=== PATIENT | female | born 1995 | race Hispanic/Latino ===

== ENCOUNTER → 2018-09-13 16:24 | Outpatient (CLI) | payer MEDICAID, SELFPAY ==
[2018-09-13 18:53] LABS: Chlamydia Trachomatis by PCR Negative (Negative); Neisserai gonorrhoeae by PCR Negative (Negative); Probe Check PASS; Sample Adequacy Control PASS; Specimen Processing Control PASS
[2018-09-17 11:07] LABS: HPV Reflexed? NOT INDICATED
== END ==
PROVIDERS: Visit Provider Obstetrics & Gynecology
DX: Z12.4 Encounter for screening for malignant neoplasm of cervix (principal); Z11.3 Encounter for screening for infections with a predominantly sexual mode of transmission; Z32.01 Encounter for pregnancy test, result positive
CPT/HCPCS: 87491; 87591; 88175; G0145

== ENCOUNTER → 2018-09-22 15:31 | Outpatient (CLI) | payer MEDICAID, SELFPAY ==
[2018-09-22 17:58] LABS: Color, Urine Yellow (Yellow); Glucose, Dipstick Normal (Normal); Ketone-Dipstick 50 mg/dl (Negative); Leukocyte Esterase-Dipstick 100 /ul (Negative); Nitrite-Dipstick Negative (Negative); Occult Blood-Urine Negative /ul (Negative); Protein-Dipstick 30 mg/dl (Negative); Specific Gravity, Urine 1.015 (1.002-1.030); Urine Bilirubin Dipstick Negative (Negative); Urine Clarity Sl. Cloudy (Clear); Urine Urobilinogen 4 mg/dl (Normal)
[2018-09-22 17:59] LABS: Absolute Lymphocyte Count 1.83 X10^3/ul (0.83-4.51); Absolute Neutrophil Count 5.1 X10^3/uL (2.0-7.7); Basophil# 0.01 X10^3/uL; Basophil% 0.1 % (0-1); Eosinophil# 0.05 X10^3/uL; Eosinophils% 0.7 % (0-5); Hematocrit 31.6 % (37-47); Hemoglobin 9.9 g/dl (12.0-15.0); Lymphocyte # 1.83 X10^3/ul (4.0); Lymphocyte % 24.6 % (19-41); Mean Corp Hgb Conc 31.3 g/gl (32-36); Mean Corpuscular Hgb 25.8 pg (27.0-32.0); Mean Corpuscular Volume 82.5 fL (81-99); Mean Platelet Vol. 10.2 fl (6.2-12.0); Monocyte# 0.41 X10^3/uL; Monocyte% 5.5 % (0-10); Neutrophil # 5.13 X10^3/uL (2.7-7.7); Neutrophil % 68.8 % (47-70); Platelet Count 262 K/mm3 (150-450); RBC Distribution Width CV 14.3 % (11.6-14.6); Red Blood Count 3.83 M/mm3 (4.2-5.4); White Blood Count 7.5 K/mm3 (4.4-11.0)
[2018-09-22 18:06] LABS: Amphetamine Urine VISTA NEGATIVE (<1000 ng/mL); Barbiturate Urine VISTA NEGATIVE (< 200 ng/mL); Benzodiazepine Urine VISTA NEGATIVE (< 200 ng/mL); Cocaine Urine VISTA NEGATIVE (< 300 ng/mL); Ecstacy Urine VISTA NEGATIVE (< 500 ng/mL); Methadone Urine VISTA NEGATIVE (< 300 ng/mL); PCP Urine VISTA NEGATIVE (< 25 ng/mL); THC Urine VISTA POSITIVE (< 50 ng/mL); Vista UDS pH Range 6
[2018-09-22 18:11] LABS: Thyroid Stim Hormone (TSH) 0.31 uIU/mL (0.358-3.74)
[2018-09-22 18:17] LABS: POSITIVE COUNT NO; POSITIVE DIFFERENTIAL NO; POSITIVE MORPHOLOGY NO
[2018-09-22 18:40] LABS: COTININE Drug Screen Negative (<200 ng/mL)
[2018-09-22 19:00] LABS: HIV - WCH Non-Reactive (Nonreactive)
[2018-09-23 01:35] LABS: Prenatal RPR NONREACTIVE (NONREACTIVE)
[2018-09-23 15:35] LABS: Free T3 2.7 pg/mL (2.18-3.98); T4 Free Direct 1.07 ng/dL (0.76-1.46)
[2018-09-26 11:47] LABS: HEPATITIS B SURFACE AG Negative (Negative); Hep C Antibodies <0.1 s/co ratio (0.0-0.9)
== END ==
PROVIDERS: Visit Provider Obstetrics & Gynecology
DX: O99.282 Endocrine, nutritional and metabolic diseases complicating pregnancy, second trimester (principal); R94.6 Abnormal results of thyroid function studies; Z3A.00 Weeks of gestation of pregnancy not specified
CPT/HCPCS: 36415; 80307; 81002; 84439; 84443; 84481; 85025; 86703; 86762; 86803; 87340

== ENCOUNTER → 2018-10-13 13:41 | Outpatient (CLI) | payer MEDICAID, SELFPAY ==
[2018-10-13 14:16] LABS: Hematocrit 33.6 % (37-47); Hemoglobin 10.8 g/dl (12.0-15.0); Mean Corp Hgb Conc 32.1 g/gl (32-36); Mean Corpuscular Hgb 26.5 pg (27.0-32.0); Mean Corpuscular Volume 82.6 fL (81-99); Mean Platelet Vol. 9.4 fl (6.2-12.0); Platelet Count 221 K/mm3 (150-450); RBC Distribution Width CV 16.5 % (11.6-14.6); RBC Distribution Width SD 48.8 fl (35.1-43.9); Red Blood Count 4.07 M/mm3 (4.2-5.4); White Blood Count 7.5 K/mm3 (4.4-11.0)
[2018-10-13 14:22] LABS: Scan Indicated on CBC? Y/N NO
[2018-10-13 14:23] LABS: Glucose Challenge Gest 1H 50g 101 mg/dL (70-140)
== END ==
PROVIDERS: Visit Provider Obstetrics & Gynecology
DX: Z34.82 Encounter for supervision of other normal pregnancy, second trimester (principal)
CPT/HCPCS: 82950; 85027

== ENCOUNTER → 2018-10-28 16:30 | Outpatient (CLI) | payer MEDICAID, SELFPAY | PROVIDERS: Visit Provider Obstetrics & Gynecology | DX: N39.0 Urinary tract infection, site not specified (principal) | CPT/HCPCS: 87086; 87088 ==

== ENCOUNTER 2018-11-02 02:42 | Emergency (ER) | payer MEDICAID, SELFPAY ==
[2018-11-02 02:42] VITALS: BP 146/94; PULSE 126; RESP 16; TEMP 36.6; O2SAT 100; BMI 35.2
[2018-11-02] MEDS: DiphenhydrAMINE 25 MG Capsule 50 MG PO (03:10)
[2018-11-02] MEDS: predniSONE 20 MG Tablet 40 MG PO (03:10)
[2018-11-02 03:41] LABS: Mucous, Urine 0 SEEN /hpf (<or=2+); Red Blood Cells-Urine 0 SEEN /hpf (0-5)
[2018-11-02 04:13] VITALS: BP 111/60; PULSE 74; RESP 15; O2SAT 97
[2018-11-02 04:31] LABS: Color, Urine Yellow (Yellow); Glucose, Dipstick Normal (Normal); Ketone-Dipstick 5 mg/dl (Negative); Leukocyte Esterase-Dipstick 100 /ul (Negative); Nitrite-Dipstick Negative (Negative); Occult Blood-Urine Negative /ul (Negative); Protein-Dipstick Negative (Negative); Urine Bilirubin Dipstick Negative (Negative); Urine Clarity Sl. Cloudy (Clear); Urine Urobilinogen Normal (Normal); Urine pH 6.5 (5.0 - 8.0)
[2018-11-02 04:32] LABS: Bacteria RARE /hpf (None Seen); Squamous Epithelial Cells - UA 5-10 SEEN /hpf (5-10); White Blood Cells 0-5 SEEN /hpf (0-5)
--- NOTE | 2018-11-02 04:48 | ED.VISSUMM ---
- ER Visit Summary Date of Service: 11/02/18 Chief Complaint: Allergic reaction History of Present Illness: The patient is a 23 F who started on Macrobid late last week from her OB. She is currently 30 weeks . She developed an itchy rash that started in her lower back several days ago but the rash is spread more diffusely over the past 24 hours. She denies any other new food or detergent. She denies throat tightness or wheezing. She has been feeling normal movement. Physical Examination: Vital signs initially significant for heart rate of 126. Patient sitting upright in bed she is scratching her arms and lower back. Head neck examination is unremarkable. Heart is slightly tachycardic and regular. Lungs sounds clear. Abdomen is soft nontender. Skin examination was a fine faint pink rash of the lower back and arms. Test Results: Urinalysis was repeated tonight. There is 0-5 white cells with 5-10 epithelial cells. Emergency Department Course and Treatment: Patient was given Benadryl, prednisone, and Pepcid. I did review the urine culture that had been sent to the last week. This returned positive for mixed gram-positive organisms. With no sign of acute infection denies urinalysis I do not think she needs to be placed on any different antibiotic. She can stop the Macrobid and there is no further indication for antibiotic currently. On repeat examination patient is resting more comfortably. Heart rate is currently 84. She will be treated with a couple days of steroid, Benadryl, and Pepcid. Treatment Plan: [] Disposition: Discharge Impression: Allergic drug reaction This note was generated with [employer] dictation software. It may contain incorrect words, spelling, and punctuation that were not noted in review of the chart prior to signing ED Disposition - Plan for ED Patient: Disposition: Home or Assisted Living Chief Complaint: Allergic Reaction Instructions: ED Drug React Allergic Prescriptions: DiphenhydrAMINE [Benadryl] 50 mg PO BID PRN PRN #10 capsule PRN Reason: Itching predniSONE tablet 40 mg PO DAILY #8 tablet Famotidine [Pepcid] 20 mg PO BID #10 tablet Referrals: Emilio Lyle MD [Primary Care Provider] - Keep Bruna appointment
--- NOTE | 2018-11-02 04:51 | DCINST.ED_ITS ---
ED Disposition - Plan for ED Patient: Disposition: Home or Assisted Living Chief Complaint: Allergic Reaction Instructions: ED Drug React Allergic Prescriptions: DiphenhydrAMINE [Benadryl] 50 mg PO BID PRN PRN #10 capsule PRN Reason: Itching predniSONE tablet 40 mg PO DAILY #8 tablet Famotidine [Pepcid] 20 mg PO BID #10 tablet Referrals: Emilio Lyle MD [Primary Care Provider] - Keep Bruna appointment
[2018-11-02] MEDS: Famotidine 20 MG Tablet 40 MG PO (05:05)
[2018-11-02 05:07] VITALS: BP 113/69; PULSE 84; RESP 16; O2SAT 97
== END 2018-11-02 05:08 | disposition home or self-care (01) ==
PROVIDERS: Emergency Provider Emergency Medicine; Family Provider Obstetrics & Gynecology; PCP Obstetrics & Gynecology
DX: O9A.213 Injury, poisoning and certain other consequences of external causes complicating pregnancy, third trimester (principal); L27.0 Generalized skin eruption due to drugs and medicaments taken internally; T37.8X5A Adverse effect of other specified systemic anti-infectives and antiparasitics, initial encounter; Y92.9 Unspecified place or not applicable; Z3A.30 30 weeks gestation of pregnancy; Z87.891 Personal history of nicotine dependence
CPT/HCPCS: 81001; 99283

== ENCOUNTER → 2018-12-02 16:22 | Outpatient (CLI) | payer MEDICAID, SELFPAY ==
[2018-11-02 02:42] VITALS: BMI 35.2
[2018-12-02 17:18] LABS: Fetal Fibronectin Negative
== END ==
PROVIDERS: Visit Provider Obstetrics & Gynecology
DX: Z34.83 Encounter for supervision of other normal pregnancy, third trimester (principal); Z36.85 Encounter for antenatal screening for Streptococcus B
CPT/HCPCS: 82731; 87077; 87081; 87186

== ENCOUNTER 2019-01-04 06:37 | Inpatient (IN) | payer MEDICAID, SELFPAY ==
[2019-01-04] MEDS: Lactated Ringers 1,000 ML 50 ML IV (07:30)
[2019-01-04 07:39] VITALS: BMI 38.2
[2019-01-04 07:56] LABS: Hematocrit 29.7 % (37-47); Hemoglobin 9.4 g/dl (12.0-15.0); Mean Corp Hgb Conc 31.6 g/gl (32-36); Mean Corpuscular Hgb 25.3 pg (27.0-32.0); Mean Corpuscular Volume 80.1 fL (81-99); Mean Platelet Vol. 10.5 fl (6.2-12.0); Platelet Count 183 K/mm3 (150-450); RBC Distribution Width CV 15.5 % (11.6-14.6); RBC Distribution Width SD 45.7 fl (35.1-43.9); Red Blood Count 3.71 M/mm3 (4.2-5.4)
[2019-01-04 07:58] LABS: Scan Indicated on CBC? Y/N NO
[2019-01-04] MEDS: Oxytocin 30 units/NS 500 ml 30 UNITS/500 ML IV.SOLN IV (08:00)
--- NOTE | 2019-01-04 08:42 | PCM.PN.OB ---
Subjective: Appears comfortable Objective: Afeb VSS FHR tracing Cat 1. - Physical Exam General: Alert, Oriented x3, Cooperative, No apparent distress Lungs: Clear to auscultation, Normal air movement Cardiovascular: Regular rate Abdomen: Soft, Non Tender, Non-Distended, Gravid, Appropriate for Gestational Age Extremities: No edema Skin: No rashes Neurological: Neuro grossly intact Psych/Mental Status: Normal Affect Comment: CE 4/50/posterior Vertex well applied to cervix Weight: 216 lb Body Mass Index (BMI) 38.2 Laboratory Tests Past 24 Hrs 01/04/19 01/04/19 07:30 07:30 WBC 7.0 RBC 3.71 L Hgb 9.4 L Hct 29.7 L MCV 80.1 L MCH 25.3 L MCHC 31.6 L RDW 15.5 H RDW Differential 45.7 H Plt Count 183 MPV 10.5 Blood Type Pending Antibody Screen Pending Medical Necessity - Tobacco Use Smoking Status: Never smoker Assessment/Plan Admitted for elective induction of labor at 39 weeks. Cervix favorable. Pitocin induction started. AROM performed with clear fluid noted.
[2019-01-04 10:20] LABS: Amphetamine Urine VISTA NEGATIVE (<1000 ng/mL); Barbiturate Urine VISTA NEGATIVE (< 200 ng/mL); Benzodiazepine Urine VISTA NEGATIVE (< 200 ng/mL); Cocaine Urine VISTA NEGATIVE (< 300 ng/mL); Ecstacy Urine VISTA NEGATIVE (< 500 ng/mL); Methadone Urine VISTA NEGATIVE (< 300 ng/mL); PCP Urine VISTA NEGATIVE (< 25 ng/mL); THC Urine VISTA NEGATIVE (< 50 ng/mL); Vista UDS pH Range 5
[2019-01-04] MEDS: fentaNYL-bupivacaine (epidural) 100 ML BAG EPIDURAL (10:59)
[2019-01-04] MEDS: Oxytocin 30 units/NS 500 ml 30 UNITS/500 ML IV.SOLN 334 UNITS IV (11:30)
[2019-01-04] MEDS: Methylergonovine 0.2 MG/ML Ampul IM (11:45)
--- NOTE | 2019-01-04 11:49 | PCM.OB.VAG ---
Vaginal Delivery Maternal Presentation: Elective Induction 39 weeks admitted for elective induction of labor Method of Induction: Pitocin, Amniotomy Amniotic Membrane Rupture Type: Artificial Rupture of Membrane time: 0830 Amniotic Fluid Description: Clear Final HOLLIE: 01/11/19 Final HOLLIE Source: US <20 weeks Gestational age: 39 Weeks and 0 Days Date of Procedure: 01/04/19 Pre-Operative Diagnosis: Labor Post-Operative Diagnosis: same Surgery/ Procedure Performed: Spontaneous Vaginal Delivery Anesthesiologist: Jamil Lancaster Type of Anesthesia: Epidural Description of Procedure: Admitted for induction of labor. Was started on pitocin to induce labor. Amniotomy performed shortly thereafter with clear fluid noted. Progressed over 3 1/2 hours to FD then pushed over about 5 minutes to deliver a live female without complication. Delayed cord clamping was employed. The cord was then clamped and cut. The baby had apgars of 9/9. The placenta delivered spontaneously intact with a centrally located 3VC. The uterus contracted nicely. Inspection revealed an intact cervix, upper and lower vagina and perineum. The patient was given ampicillin for GBS prophylaxis at 0811 and delivered less than 4 hours later but greater than 3. Presentation: Vertex Placental Delivery Description: Spontaneous Placenta Disposition: [facility] Percentage of Placenta Abruption: 0 Cord Vessel Description: 3 Vessels Nuchal Cord Compression: Without compression Cord Entanglement: None Estimated Blood Loss: 200cc A gender: Female (1 minute): 9 (5 minute): 9 Episiotomy Description: None Laceration: None Medications given after delivery: IV Pitocin Complications: None
--- NOTE | 2019-01-04 11:55 | DCINST_ITS ---
Discharge Diet: No Restrictions Discharge Activity: Return to Normal Activity, May Drive, May Shower Return to work on:: 03/06/19 May shower in (days): 0 May resume sexual activity in: 4-6 weeks Call your doctor if your incision/area has: Sudden Increased Bleeding, Increased Pain/ Swelling, Foul Smelling Discharge Call your doctor if you observe: Fever of 101 or Higher, Inability to urinate, Inability to have a bowel movement, Using more than one pad per hour, Shortness of breath, Chest pain, Calf discomfort, Uncontrolled pain Cleanse incision/area with: Soap & Water Additional Instructions: If you experience any of the following, contact your healthcare provider. * Bleeding that soaks a pad every hour for 2 hours * Fever 100.4 or higher * Unrelieved incision or abdominal pain * Swelling, redness, discharge or bleeding from your incision or episiotomy site * Your incision begins to separate * Problems urinating (including inability to urinate or burning while urinating). * Visual changes * Severe headache * Flu-like symptoms * Pain or redness in one of both of your breasts * Pain, warmth, tenderness or swelling in your legs, especially the calf area * Frequent nausea and vomiting * Symptoms of depression or anxiety If you experience any of the following, call 911 or go to the nearest Emergency Room. * Chest pain * Problems breathing * Seizure activity * Partial or complete paralysis of a body part, slurred speech, weakness or drooping of the face, or a sudden inability to walk or hold your balance Allergies/Adverse Reactions: Allergies latex Adverse Reaction (Verified 01/04/19 07:40) Rash Medications to take at Discharge Ferrous Gluconate 324 mg PO BID #60 tab 01/04/19 Ibuprofen 600 mg PO 4X/DAY #30 tab 01/04/19 Pnv No.95/Ferrous Fum/Folic AC [ Formula] 1 ea PO DAILY #30 tab 01/04/19 The following prescriptions were given: Pnv No.95/Ferrous Fum/Folic AC [ Formula] 1 ea PO DAILY #30 tab Ferrous Gluconate 324 mg PO BID #60 tab Ibuprofen 600 mg PO 4X/DAY #30 tab Please Follow Up With: Emilio Lyle MD When: 6 weeks Primary Care Physician: Care Physician,No Primary [Primary Care Provider] - Test Results: Test results from this visit will be discussed in further detail at your follow- up appointment, if applicable. Proposed Discharge Date: 01/06/19
[2019-01-04] MEDS: Oxytocin 30 units/NS 500 ml 30 UNITS/500 ML IV.SOLN 167 UNITS IV (12:01)
[2019-01-04] MEDS: Acetaminophen 500 MG Tablet 1000 MG PO (15:46)
[2019-01-04 16:00] VITALS: BP 112/63; PULSE 89; RESP 16; TEMP 36.5
[2019-01-04] MEDS: Ibuprofen 600 MG Tablet PO (18:50)
[2019-01-04 20:05] VITALS: BP 125/64; PULSE 74; RESP 18; TEMP 36.2; O2SAT 98
[2019-01-04 23:07] VITALS: BP 107/55; PULSE 79; RESP 18; TEMP 36.2; O2SAT 95
[2019-01-05] MEDS: oxyCODONE 5 MG Tablet PO ×2 (02:26→20:25)
[2019-01-05 03:04] VITALS: BP 123/69; PULSE 75; RESP 16; TEMP 36.2; O2SAT 98
[2019-01-05] MEDS: Ibuprofen 600 MG Tablet PO (05:11)
[2019-01-05 05:30] LABS: Hematocrit 26.5 % (37-47); Mean Corp Hgb Conc 30.2 g/gl (32-36); Mean Corpuscular Hgb 24.7 pg (27.0-32.0); Mean Corpuscular Volume 81.8 fL (81-99); Mean Platelet Vol. 10.7 fl (6.2-12.0); Platelet Count 172 K/mm3 (150-450); RBC Distribution Width CV 15.6 % (11.6-14.6); RBC Distribution Width SD 44.5 fl (35.1-43.9); Red Blood Count 3.24 M/mm3 (4.2-5.4); White Blood Count 9.1 K/mm3 (4.4-11.0)
[2019-01-05 05:36] LABS: Scan Indicated on CBC? Y/N NO
--- NOTE | 2019-01-05 06:56 | PCM.PN.OB ---
Subjective: No specific complaints. Bleeding light. Objective: Afeb VSS Hgb stable on PP day#1. - Physical Exam General: Alert, Oriented x3, Cooperative, No apparent distress Lungs: Clear to auscultation, Normal air movement Cardiovascular: Regular rate, Regular Rhythm Abdomen: Soft, Non Tender, Non-Distended, - - Fundus firm nontender Extremities: No edema Skin: No rashes Neurological: Neuro grossly intact Psych/Mental Status: Normal Affect Comment: Lochia light Vital Signs Temp Pulse Resp BP Pulse Ox 97.2 F L 75 16 123/69 H 98 01/05/19 03:04 01/05/19 03:04 01/05/19 03:04 01/05/19 03:04 01/05/19 03:04 Oxygen Delivery Method Room Air Weight: 216 lb Body Mass Index (BMI) 38.2 Intake and Output for Last 24 Hours 01/03/19 01/04/19 01/05/19 23:59 23:59 23:59 Intake Total 1828 / 1828 Output Total 1300 / 1300 Balance 528 / 528 Laboratory Tests Past 24 Hrs 01/04/19 01/04/19 01/04/19 07:30 07:30 09:00 WBC 7.0 RBC 3.71 L Hgb 9.4 L Hct 29.7 L MCV 80.1 L MCH 25.3 L MCHC 31.6 L RDW 15.5 H RDW Differential 45.7 H Plt Count 183 MPV 10.5 Urine Opiates Screen NEGATIVE Urine Methadone Screen NEGATIVE Ur Barbiturates Screen NEGATIVE Ur Phencyclidine Scrn NEGATIVE Ur Amphetamines Screen NEGATIVE U Methamphetamin-MDMA NEGATIVE U Benzodiazepines Scrn NEGATIVE Urine Cocaine Screen NEGATIVE U Cannabinoids Screen NEGATIVE Ur Drug Screen Comment Blood Type A POSITIVE Antibody Screen NEGATIVE 01/05/19 05:17 WBC 9.1 RBC 3.24 L Hgb 8.0 L Hct 26.5 L MCV 81.8 MCH 24.7 L MCHC 30.2 L RDW 15.6 H RDW Differential 44.5 H Plt Count 172 MPV 10.7 Urine Opiates Screen Urine Methadone Screen Ur Barbiturates Screen Ur Phencyclidine Scrn Ur Amphetamines Screen U Methamphetamin-MDMA U Benzodiazepines Scrn Urine Cocaine Screen U Cannabinoids Screen Ur Drug Screen Comment Blood Type Antibody Screen Medical Necessity - Tobacco Use Smoking Status: Never smoker Assessment/Plan Doing well on PP day#1. Continue routine PP care.
[2019-01-05 08:31] VITALS: BP 101/70; PULSE 82; RESP 18; TEMP 36.3; O2SAT 98
[2019-01-05 12:10] VITALS: BP 114/65; PULSE 78; RESP 18; TEMP 36.1; O2SAT 97
[2019-01-05 18:45] VITALS: BP 138/77; PULSE 97; RESP 18; TEMP 36.4; O2SAT 97
[2019-01-05 20:10] VITALS: BP 109/68; PULSE 78; RESP 16; TEMP 36.6
[2019-01-06 01:40] VITALS: BP 118/69; PULSE 80; RESP 18; TEMP 36.7
--- NOTE | 2019-01-06 08:38 | PCM.PN.OB ---
Subjective: No speciifc complaints today. Bleeding light. Breast feeding. Objective: Afeb VSS - Physical Exam General: Alert, Oriented x3, Cooperative, No apparent distress Lungs: Clear to auscultation, Normal air movement Cardiovascular: Regular rate, Regular Rhythm Abdomen: Soft, Non Tender, Non-Distended Extremities: No edema Skin: No rashes Neurological: Neuro grossly intact Psych/Mental Status: Normal Affect Comment: Lochia lioght Vital Signs Temp Pulse Resp BP Pulse Ox 98.0 F 80 18 118/69 97 01/06/19 01:40 01/06/19 01:40 01/06/19 01:40 01/06/19 01:40 01/05/19 18:45 Oxygen Delivery Method Room Air Weight: 216 lb Body Mass Index (BMI) 38.2 Intake and Output for Last 24 Hours 01/04/19 01/05/19 01/06/19 23:59 23:59 23:59 Intake Total 1828 / 1828 Output Total 1300 / 1300 Balance 528 / 528 Medical Necessity - Tobacco Use Smoking Status: Never smoker Assessment/Plan Doing well on PP day#2. Cleared for discharge home today. Home going instructions and warnings given.
--- NOTE | 2019-01-06 08:39 | PCM.DC.SUM ---
Discharge Date and Diagnosis Date of Admission: 01/04/19 Date of Discharge: 01/06/19 - Primary Discharge Diagnosis S/P Hospital Course and Treatment Operations: None Procedures: - - Pitocin induction, epidural anesthesia, Summary of Care Provided: The patient is a 23 year old F [admitted for inductiuon of labor at 39 weeks. Pitocin induction resulted in uncomplicated delivery of a live female without complication. Post course was unremarkable. Discharged home on PP day#2.] - Physical Exam Vital Signs Temp Pulse Resp BP Pulse Ox 98.0 F 80 18 118/69 97 01/06/19 01:40 01/06/19 01:40 01/06/19 01:40 01/06/19 01:40 01/05/19 18:45 Oxygen Delivery Method Room Air Weight: 216 lb Body Mass Index (BMI) 38.2 Intake and Output for Last 24 Hours 01/04/19 01/05/19 01/06/19 23:59 23:59 23:59 Intake Total 1828 / 1828 Output Total 1300 / 1300 Balance 528 / 528 Discharge Diet: No Restrictions Discharge Activity: Return to Normal Activity, May Drive, May Shower Return to work on:: 03/06/19 May shower in (days): 0 May resume sexual activity in: 4-6 weeks Call your doctor if your incision/area has: Sudden Increased Bleeding, Increased Pain/ Swelling, Foul Smelling Discharge Call your doctor if you observe: Fever of 101 or Higher, Inability to urinate, Inability to have a bowel movement, Using more than one pad per hour, Shortness of breath, Chest pain, Calf discomfort, Uncontrolled pain Cleanse incision/area with: Soap & Water Home Medications: Medications to take at Discharge Ferrous Gluconate 324 mg PO BID #60 tab 01/04/19 Ibuprofen 600 mg PO 4X/DAY #30 tab 01/04/19 Pnv No.95/Ferrous Fum/Folic AC [ Formula] 1 ea PO DAILY #30 tab 01/04/19 Following Prescrptions Were Given to Patient: Pnv No.95/Ferrous Fum/Folic AC [ Formula] 1 ea PO DAILY #30 tab Ferrous Gluconate 324 mg PO BID #60 tab Ibuprofen 600 mg PO 4X/DAY #30 tab Primary Care Physician: Care Physician,No Primary [Primary Care Provider] - Please Follow Up With: Emilio Lyle MD When: 6 weeks Disposition: Home Minutes spent on discharge:: 15 Patient Condition:: Good Medical Necessity - Tobacco Use Smoking Status: Never smoker Meaningful Use Info Meaningful Use Diagnoses (Choose all that apply): None applicable
[2019-01-06 08:40] VITALS: BP 108/69; PULSE 76; RESP 18; TEMP 35.9
[2019-01-06 14:30] VITALS: BP 117/72; PULSE 81; RESP 16; TEMP 36.6; O2SAT 99
== END 2019-01-06 16:05 | disposition home or self-care (01) | DRG 560 ==
PROVIDERS: Admitting Provider Obstetrics & Gynecology; Referring Provider Obstetrics & Gynecology; Visit Provider Obstetrics & Gynecology
DX: O99.824 Streptococcus B carrier state complicating childbirth (principal); Z3A.39 39 weeks gestation of pregnancy; Z37.0 Single live birth
CPT/HCPCS: 59025; 59050; 80307; 85027; 86850; 86900; 99218; J7120; 90686; G0378

== ENCOUNTER 2019-06-02 22:29 | Emergency (ER) | payer MEDICAID, SELFPAY ==
[2019-06-02 22:29] VITALS: BP 115/69; PULSE 78; RESP 15; TEMP 36.7; BMI 35.4
--- NOTE | 2019-06-02 22:43 | ED.VIS.GEN ---
History of Present Illness Chief Complaint: Nausea/Vomiting Informant: Patient Narrative: Stated for the last 2 to 3 weeks she is felt nauseous and having intermittent vomiting after eating. She denies any pain. Normal bowel movements. She stated she vomited 3 times today. She was seen at [place] [facility] a week ago and given Zofran. She stated that it helped some but she is out now. She had a baby 5 months ago. No complications. Patient denies fevers or chills. She went to make sure she was not dehydrated. Past Medical History - Allergies and Home Meds Allergies/Adverse Reactions: Allergies nitrofurantoin [From Macrobid] Allergy (Verified 06/02/19 22:33) Hives latex Adverse Reaction (Verified 06/02/19 22:33) Rash Primary Care Physician: Care Physician,No Primary [Primary Care Provider] - Prior records reviewed: Yes Past Medical History: - - Denies Surgical History: - - Reviewed Lives: Spouse/ Significant Other Smoking Status: Never smoker Alcohol: None Drugs: None Review of Systems General: Denies: Chills, Fever, Sweats Eyes: Denies: Visual changes - bilaterally, Diplopia ENT: Denies: Rhinorrhea, Sore throat Cardiovascular: Denies: Chest pain, Palpitations Respiratory: Denies: Dyspnea, Cough, Dyspnea on exertion Gastrointestinal: Reports: Nausea, Vomiting. Denies: Abdominal pain, Diarrhea, Melena, Hematochezia Genitourinary: Denies: Dysuria, Hematuria, Frequency Musculoskeletal: Denies: Back pain, Extremity Pain Skin: Denies: Rash, Wounds Neurological: Denies: Headache, Weakness, Numbness Physical Exam Vital Signs/Narrative: Vital Signs Temp Pulse Resp BP 06/02/19 22:29 98.1 F 78 15 115/69 General: Well nourished, Well developed, No Acute Distress Head: Normocephalic, Atraumatic Eyes: Perrl, EOMI ENT: Moist mucous membranes, No rhinorrhea Neck: Supple, Nontender Cardiovascular: Regular rate, Regular rhythm, No murmurs Respiratory: No distress, CTA bilaterally, Chest nontender Abdomen: Soft, Nontender, Nondistended, Normal bowel sounds Back: Nontender, Normal Inspection Extremities: Nontender, No edema Skin: Normal color, No rash Neurological: Alert, Oriented x3, Cranial nerves II-XII grossly intact, Normal Strength, Normal Sensation Psychological: Normal affect, Normal Mood Diagnostic/Tx/Re-eval - Medical Decision Making Patient reassured at this time I do not think she needs lab work or imaging she is resting comfortably. She does not be appear dehydrated. Normal vital signs. Given oral Phenergan to take when she gets home. She will be given a prescription for this and Zofran. She will follow-up as an outpatient ED Disposition - Plan for ED Patient: Disposition: Home or Assisted Living Instructions: VOMITING (5y-Adult) Prescriptions: proMETHazine tablet [Phenergan] 25 mg PO Q6H PRN PRN #10 tab PRN Reason: Nausea Prescription Printed Ondansetron [Zofran Odt] 4 mg PO Q8H PRN PRN #10 tab PRN Reason: Nausea Prescription Printed Referrals: Care Physician,No Primary [Primary Care Provider] - Serge May DO [NON CLINICAL AFFILIATE] -
[2019-06-02 23:00] VITALS: RESP 18
[2019-06-02] MEDS: proMETHazine 25 MG Tablet PO (23:02)
== END 2019-06-02 23:08 | disposition home or self-care (01) ==
LOC: ED 22:52
PROVIDERS: Emergency Provider Emergency Medicine
DX: R11.2 Nausea with vomiting, unspecified (principal); Z88.1 Allergy status to other antibiotic agents
CPT/HCPCS: 99282